=== PATIENT | female | born 1970 | race Caucasian/White ===

== ENCOUNTER 2017-04-22 09:42 | Day surgery (SDC) | payer OTHER ==
[~2017-04-22] VITALS: Ht 170.2 cm; Wt 104.0 kg
[~2017-04-22 09:42] MED LIST: ASCO500 PO; OXYACE5T PO; SYNTHROID25 MCG PO; Vitamin D2000 UNIT PO
== END 2017-04-22 11:54 | disposition home or self-care (01) ==
LOC: ORSCSDS 09:42
PROVIDERS: Internal Medicine Gastroenterology
PROC: 0DBP8ZX Excision of Rectum, Via Natural or Artificial Opening Endoscopic, Diagnostic (ICD-10-PCS; principal; 2017-04-22 10:45)
PROC: 0DBM8ZX Excision of Descending Colon, Via Natural or Artificial Opening Endoscopic, Diagnostic (ICD-10-PCS; principal; 2017-04-22 10:45)
DX: Z12.11 Encounter for screening for malignant neoplasm of colon (principal); D12.4 Benign neoplasm of descending colon; D12.8 Benign neoplasm of rectum; K57.30 Diverticulosis of large intestine without perforation or abscess without bleeding; Z83.71 Family history of colonic polyps; Z80.0 Family history of malignant neoplasm of digestive organs; E03.9 Hypothyroidism, unspecified; Z79.899 Other long term (current) drug therapy
CPT/HCPCS: 88305; J7120

== ENCOUNTER → 2020-08-29 | Outpatient (CLI) | payer OTHER | LOC: LAB SHORT 15:46 → LAB 15:46 | DX: N89.8 Other specified noninflammatory disorders of vagina (principal) | CPT/HCPCS: 88108 ==